=== PATIENT | male | born 1985 ===

== ENCOUNTER 2020-03-26 16:31 | Inpatient (IN) | payer MEDICAID ==
[~2020-03-26] VITALS: Ht 185.4 cm; Wt 91.4 kg
[2020-03-26] MEDS ORDERED: ZOLPIDEM TARTRATE 10 MG TABLET PO PRN (19:30)
[2020-03-26 22:00] VITALS: BP 130/74
[2020-03-26] MEDS ORDERED: PETROLATUM,WHITE 28 GM JELLY TP PRN (23:00)
[2020-03-26] MEDS ORDERED: CloNIDine HCL 0.1 MG TABLET PO PRN (23:00)
[2020-03-26] MEDS ORDERED: IBUPROFEN 400 MG TABLET PO PRN (23:00)
[2020-03-26] MEDS ORDERED: ACETAMINOPHEN 325 MG TABLET PO PRN (23:00)
[2020-03-26] MEDS ORDERED: DOCUSATE SODIUM 100 MG CAPSULE PO PRN (23:00)
[2020-03-26] MEDS ORDERED: MAGNESIUM HYDROXIDE SUSPENSION 30 ML UDCUP PO PRN (23:00)
[2020-03-26] MEDS ORDERED: ALBUTEROL SULFATE HFA 90 MCG/PUFF 8 GM INHALER IH PRN (23:00)
[2020-03-26] MEDS ORDERED: LOPERAMIDE HCL 2 MG CAPSULE PO PRN (23:00)
[2020-03-26] MEDS ORDERED: GuaiFENesin/D-METHORPHAN [SUGAR-FREE] 200-20MG/10 ML SYRUP UDCUP PO PRN (23:00)
[2020-03-26] MEDS ORDERED: ONDANSETRON HCL 4 MG TABLET PO PRN (23:00)
[2020-03-26] MEDS ORDERED: NICOTINE 14 MG/24 HOUR PATCH TD PRN (23:00)
[2020-03-26] MEDS ORDERED: MAG HYDROX/AL HYDROX/SIMETH ES 30 ML SUSPENSION UDCUP PO PRN (23:00)
[2020-03-27 08:27] VITALS: BP 115/73
[2020-03-27 09:07] LABS: BASOPHILS % (AUTO) 0.8 % (0.0-2.0); EOSINOPHILS % (AUTO) 4.1 % (1.0-6.0); HEMATOCRIT 40.2 % (41-53); HEMOGLOBIN 13.7 g/dL (13.5-17.5); LYMPHOCYTES # (AUTO) 1.4 K/uL (1.0-4.8); LYMPHOCYTES % (AUTO) 18.7 % (22.0-44.0); MEAN CORPUSCULAR HEMOGLOBIN 28.9 pg (26.0-34.0); MEAN CORPUSCULAR VOLUME 85 fL (80-100); MONOCYTES # (AUTO) 0.5 K/uL (0.1-1.0); NEUTROPHILS # (AUTO) 5.4 K/uL (1.8-7.7); NEUTROPHILS % (AUTO) 70.4 % (40.0-70.0); PLATELET COUNT (AUTO) 223 K/uL (150-450); RED BLOOD CELL COUNT(AUTO) 4.73 MIL/uL (4.50-5.90); RED CELL DISTRIBUTION WIDTH 13.7 % (11.5-14.5)
[2020-03-27 09:23] LABS: HEMOGLOBIN A1C 5.5 % (3.8-5.6)
[2020-03-27] MEDS: NICOTINE 21 MG/24 HOUR PATCH TD SCH (09:26)
[2020-03-27 09:30] LABS: ALANINE AMINOTRANSFERASE 25 U/L (12-78); ALBUMIN 3.2 g/dL (3.4-5.0); ALKALINE PHOSPHATASE 67 U/L (46-116); ANION GAP 4 mmol/L (8-16); ASPARTATE AMINOTRANSFERASE 13 U/L (15-37); BILIRUBIN,TOTAL 0.7 mg/dL (0.1-1.0); CALCIUM, TOTAL 8.7 mg/dL (8.8-10.5); CARBON DIOXIDE 30 mmol/L (22-29); CHLORIDE 105 mmol/L (98-107); CHOLESTEROL 90 mg/dL (131-200); CREATININE 1.05 mg/dL (0.60-1.30); GLOMERULAR FILTR. RATE CALC > 60 mL/min (>60); GLUCOSE,RANDOM 90 mg/dL (70-110); HDL CHOLESTEROL 30 mg/dL (40-60); LDL CHOL (CALC.) 45 mg/dL (0-130); POTASSIUM 4.3 mmol/L (3.5-5.1); SODIUM SERUM 139 mmol/L (136-145); THYROID STIMULATING HORMONE 0.33 uIU/mL (0.36-3.74); TOTAL PROTEIN, SERUM 6.7 g/dL (6.4-8.2); TRIGLYCERIDES 73 mg/dL (15-150); UREA NITROGEN, BLOOD 15 mg/dL (7-18)
[2020-03-27] MEDS: LORazepam 2 MG TABLET PO PRN ×2 (11:22→17:18)
[2020-03-27] MEDS: BUPRENORPHINE HCL/NALOXONE HCL 8-2 MG SUBLINGUAL TABLET SL SCH ×2 (13:30→16:21)
[2020-03-27 16:21] VITALS: BP 112/76
[2020-03-27] MEDS: LURASIDONE HCL 40 MG TABLET PO SCH (16:21)
[2020-03-27] MEDS: HALOPERIDOL 5 MG TABLET PO PRN (17:18)
[2020-03-27] MEDS: PRAZOSIN HCL 1 MG CAPSULE PO SCH (20:24)
[2020-03-28] MEDS: NICOTINE 21 MG/24 HOUR PATCH TD SCH (08:49)
[2020-03-28] MEDS: BUPRENORPHINE HCL/NALOXONE HCL 8-2 MG SUBLINGUAL TABLET SL SCH ×3 (08:50→16:02)
[2020-03-28 10:10] VITALS: BP 102/61
[2020-03-28] MEDS: LORazepam 2 MG TABLET PO PRN (12:22)
[2020-03-28] MEDS: HALOPERIDOL 5 MG TABLET PO PRN (12:22)
[2020-03-28] MEDS: LURASIDONE HCL 40 MG TABLET PO SCH (16:02)
[2020-03-28 16:25] VITALS: BP 98/71
[2020-03-28] MEDS: PRAZOSIN HCL 1 MG CAPSULE PO SCH (20:08)
[2020-03-29 03:00] VITALS: BP 111/75
[2020-03-29 08:00] VITALS: BP 107/70
[2020-03-29] MEDS: BUPRENORPHINE HCL/NALOXONE HCL 8-2 MG SUBLINGUAL TABLET SL SCH ×3 (08:26→16:28)
[2020-03-29] MEDS: NICOTINE 21 MG/24 HOUR PATCH TD SCH (08:27)
[2020-03-29] MEDS: HALOPERIDOL 5 MG TABLET PO PRN (09:54)
[2020-03-29] MEDS: LORazepam 2 MG TABLET PO PRN ×2 (09:54→19:23)
[2020-03-29] MEDS: LURASIDONE HCL 40 MG TABLET PO SCH (16:28)
[2020-03-29 17:14] VITALS: BP 113/73
[2020-03-29 19:20] VITALS: BP 122/86
[2020-03-29] MEDS: PRAZOSIN HCL 1 MG CAPSULE PO SCH (20:26)
[2020-03-29] MEDS ORDERED: HYDROCORTISONE 1% 30 GM OINTMENT TP PRN (22:00)
[2020-03-30 01:49] VITALS: BP 108/68
[2020-03-30 08:00] VITALS: BP 111/71
[2020-03-30] MEDS: BUPRENORPHINE HCL/NALOXONE HCL 8-2 MG SUBLINGUAL TABLET SL SCH ×2 (08:36→12:31)
[2020-03-30] MEDS: NICOTINE 21 MG/24 HOUR PATCH TD SCH (08:44)
[2020-03-30] MEDS ORDERED: LURA40TA2 PO (13:30)
[2020-03-30] MEDS ORDERED: PRAZ1 PO (13:31)
[2020-03-30] MEDS ORDERED: BUPR1FIL3 SL (13:32)
== END 2020-03-30 15:15 | disposition home or self-care (01) | DRG 885 ==
LOC: EMS 16:36 → 3EI 19:30
PROVIDERS: ADMIT Psychiatry & Neurology Child & Adolescent Psychiatry; ATTEND Psychiatry & Neurology Child & Adolescent Psychiatry
DX: F33.2 Major depressive disorder, recurrent severe without psychotic features (principal); E05.90 Thyrotoxicosis, unspecified without thyrotoxic crisis or storm; E86.0 Dehydration; F14.10 Cocaine abuse, uncomplicated; J45.909 Unspecified asthma, uncomplicated; K59.00 Constipation, unspecified; Z59.0 Homelessness; Z91.14 Patient's other noncompliance with medication regimen; Z79.899 Other long term (current) drug therapy
CPT/HCPCS: 83036; 84443